=== PATIENT | male | born 1990 | race Two or more races ===

== ENCOUNTER 2020-01-31 17:19 | Emergency (ER) | payer OTHER ==
[~2020-01-31] VITALS: Ht 180.3 cm; Wt 80.7 kg
[2020-01-31] MEDS ORDERED: BIKTARVY 50-201 EACH PO (17:53)
== END 2020-01-31 22:14 | disposition home or self-care (01) ==
LOC: ER 17:19
DX: K29.60 Other gastritis without bleeding (principal); Z03.818 Encounter for observation for suspected exposure to other biological agents ruled out; R11.2 Nausea with vomiting, unspecified